=== PATIENT | female | born 1985 | race Caucasian/White ===

== ENCOUNTER → 2019-05-01 | Outpatient (CLI) | payer BC ==
--- NOTE | 2019-05-02 06:17 | ECHO ---
DATE OF STUDY: 05/01/2019 DATE OF : 1985 AGE: 33 REFERRING PROVIDER: Dr. Cayetano Steward PATIENT LOCATION: Outpatient REASON FOR STUDY: Code M25.50 2-D MEASUREMENTS: IVS: 0.8 cm LV: 3.6 cm LVPW: 0.89 cm LA: 2.9 cm Aorta: 2.3 cm IVC: 1.5 cm DOPPLER MEASUREMENTS: Peak velocity across the aortic valve: 1.2 m/s Peak velocity across the LVOT: 0.93 m/s Mitral E: 0.81 Mitral A: 0.58 Ratio: 1.4 Maximum tricuspid valve velocity: 2.4 m/s 2-D COMMENTS: 1. Normal left ventricular size, wall thickness, and normal global left ventricular systolic function. The estimated left ventricular systolic ejection fraction is 60-65%. 2. Normal left atrium. Normal right atrium and right ventricle. 3. The atrial septum appeared to be normal without evidence of defect or shunt. 4. Normal aortic root. 5. No pericardial effusion seen. 6. The aortic valve, mitral valve, tricuspid valve, and pulmonic valve appeared to be normal. The proximal pulmonary artery branches were not well visualized. 7. The inferior vena cava was normal in size, central venous pressure is most likely normal. DOPPLER: Detects trace mitral regurgitation and mild tricuspid regurgitation. The calculated pulmonary artery systolic pressure is about 30 mmHg. IMPRESSION: 1. Normal global left ventricular systolic and diastolic function. 2. Trace mitral regurgitation. 3. Mild tricuspid regurgitation with probably mild pulmonary hypertension.
== END ==
LOC: M CARPUL 10:01
PROVIDERS: ATTEND Internal Medicine Rheumatology
DX: I36.1 Nonrheumatic tricuspid (valve) insufficiency (principal); M25.50 Pain in unspecified joint

== ENCOUNTER → 2023-11-23 | Outpatient (REF) | payer BC ==
[2023-11-23 17:37] LABS: ALKALINE PHOSPHATASE 37 U/L (46-116); ALT/SGPT 19 U/L (7.0-40); AST/SGOT < 8 U/L (<34); BILIRUBIN,TOTAL 0.7 MG/DL (0.3-1.2); BLOOD UREA NITROGEN 13 MG/DL (9-23); CALCIUM LEVEL 9.2 MG/DL (8.5-10.1); CARBON DIOXIDE LEVEL 29 MMOL/L (20-31); CHLORIDE LEVEL 103 MMOL/L (98-107); CHOLESTEROL LEVEL 184 MG/DL (<200); CREATININE FOR GFR 0.62 MG/DL (0.55-1.30); GLOMERULAR FILTRATION RATE > 60.0 (>60); GLUCOSE, FASTING 90 MG/DL (60-100); HDL CHOLESTEROL 87.6 MG/DL (>40); NON-HDL-C 96.4 MG/DL; POTASSIUM SERUM 4.2 MMOL/L (3.5-5.1); SODIUM LEVEL 137 MMOL/L (136-145); TOTAL PROTEIN 6.7 G/DL (5.7-8.2); TRIGLYCERIDES LEVEL 52 MG/DL (<150)
[2023-11-23 17:40] LABS: FREE T4 0.93 NG/DL (0.89-1.76); THYROID STIMULATING HORMONE 1.537 uIU/ML (0.55-4.78)
[2023-11-23 17:41] LABS: TOTAL 25(OH) VITAMIN D 34.8 NG/ML (20.0-100.0)
== END ==
LOC: M SFHCCLAY 09:43
PROVIDERS: ATTEND Nurse Practitioner Family
DX: E55.9 Vitamin D deficiency, unspecified (principal); E03.9 Hypothyroidism, unspecified; Z13.220 Encounter for screening for lipoid disorders

== ENCOUNTER → 2024-08-25 | Outpatient (CLI) | payer BC ==
[2024-08-25 19:01] LABS: BASO # 0.1 10^3/uL (0.0-0.2); BASO % 1.1 % (0.0-1.0); EOS # 0.1 10^3/uL (0.0-0.5); EOS % 2.1 % (0.0-3.0); HEMATOCRIT 39.3 % (36.0-47.0); HEMOGLOBIN 13.7 g/dl (12.0-15.5); LYMPH # 1.3 10^3/uL (1.5-5.0); LYMPH % 28.9 % (24.0-44.0); MEAN CORPUSCULAR HGB CONC 34.9 g/dl (32.0-36.5); MEAN CORPUSCULAR VOLUME 88.9 fl (80.0-96.0); MONO # 0.3 10^3/uL (0.0-0.8); MONO % 7.5 % (2.0-8.0); NEUTROPHILS # 2.6 10^3/uL (1.5-8.5); NEUTROPHILS % 60.2 % (36.0-66.0); PLATELET COUNT, AUTOMATED 280 10^3/uL (150-450); RED BLOOD COUNT 4.42 10^6/uL (4.00-5.40); WHITE BLOOD COUNT 4.4 10^3/uL (4.0-10.0)
[2024-08-29 02:57] LABS: TRYPTASE 6.4 mcg/L (<11.0)
== END ==
LOC: M LAB 09:51
PROVIDERS: ATTEND Allergy & Immunology Allergy
DX: L50.8 Other urticaria (principal); R53.81 Other malaise; L50.1 Idiopathic urticaria

== ENCOUNTER → 2024-10-02 | Outpatient (REF) | payer BC ==
[2024-10-04 14:03] LABS: EBV AB TO NUCLEAR ANTIGEN > 600.00 U/mL (<18.00); EBV VIRAL CAPSID AG IGG > 750.00 U/mL (<18.00); EBV VIRAL CAPSID AG IGM < 36.00 U/mL (<36.00)
== END ==
LOC: M SFHCRHEU 10:27
PROVIDERS: ATTEND Internal Medicine
DX: M25.50 Pain in unspecified joint (principal); R53.83 Other fatigue